=== PATIENT | female | born 1965 | race Caucasian/White ===

== ENCOUNTER → 2019-04-21 | Outpatient (CLI) | payer OTHER ==
--- NOTE | 2019-04-21 16:25 | US ---
EXAMINATION TYPE: US pelvic complete DATE OF EXAM: 04/21/2019 COMPARISON: NONE CLINICAL HISTORY: N95.0 post menopausal bleeding. Pt states episode of moderate vaginal bleeding x 1 day, denies pain, pt not on HRT's TECHNIQUE: Transabdominal (TA). Transabdominal sonographic images of the pelvis were acquired. Date of LMP: age 48 EXAM MEASUREMENTS: Uterus: 13.1 x 5.2 x 6.2 cm Endometrial Stripe: 0.6 cm Right Ovary: 2.0 x 1.2 x 2.1 cm Left Ovary: 2.0 x 1.3 x 1.6 cm 1. Uterus: Anteverted Heterogeneous, enlarged, 3 calcified masses within fundus 1)= 2.6 x 2.0 x 2. 1 cm 2)= 2.1 x 1.8 x 1.9 cm 3)= 1.4 x 1.4 x 1.4 cm 2. Endometrium: Appeared wnl 3. Right Ovary: wnl 4. Left Ovary: wnl 5. Bilateral Adnexa: wnl 6. Posterior cul-de-sac: wnl IMPRESSION: There are small calcified fibroids scattered throughout the uterus. Endometrium not well visualized presumed not thickened. Suboptimal study without transvaginal investigation.
== END | disposition home or self-care (01) ==
LOC: RADUSWWP 16:01
PROVIDERS: ATTEND Obstetrics & Gynecology
DX: D25.9 Leiomyoma of uterus, unspecified (principal)
CPT/HCPCS: 76856

== ENCOUNTER → 2019-06-28 | Outpatient (CLI) | payer OTHER ==
[2019-06-28 15:02] VITALS: BP 135/81; PULSE 92; RESP 16; TEMP 98.7; BMI 29.0
--- NOTE | 2019-06-28 16:25 | P.BASOAP ---
Subjective Progress Note Date: 06/28/19 Principal diagnosis: Obesity 53-year-old female had a lap band switched to a sleeve gastrectomy around 2009. Has done fairly well. Weight is been in the 159 range for a while. Lately he has had some upper abdominal discomfort along with acid reflux and dysphagia. Occasional episodes of vomiting as well. Lately has taken some Tagamet with some relief. Symptoms for the last few months. She has not followed up here in quite some time. Denies melena or rectal bleeding. Objective - Vital Signs Vital signs: Vital Signs Temp 98.7 F 06/28/19 14:58 Pulse 92 06/28/19 14:58 Resp 16 06/28/19 14:58 BP 135/81 06/28/19 14:58 Pulse Ox Intake & Output 06/27/19 06/28/19 06/28/19 18:59 06:59 18:59 Weight 72.121 kg - Exam Physical exam: General: Well-developed, well-nourished HEENT: Normocephalic, sclerae nonicteric Abdomen: Nontender, nondistended Extremities: No edema Neuro: Alert and oriented Assessment/Plan (1) GERD (gastroesophageal reflux disease) Narrative/Plan: Check annual labs at this time. Begin antiacid therapy. We'll schedule for EGD with possible biopsy and dilation. Plan: Date: 06/28/19 Initial Weight: 96.162 kg Initial BMI: 38.7 Current Weight: 72.121 kg Current BMI: 29.0 Type of Surgery: Total Volume in Band: Previous Volume: Volume Removed: Volume Added: Band Size:
[2019-06-28 16:55] LABS: HCT 34.8 % (34.0-46.0); HGB 10.9 gm/dL (11.4-16.0); Hypochromasia Slight; MCH 26.7 pg (25.0-35.0); MCHC 31.2 g/dL (31.0-37.0); MCV 85.6 fL (80.0-100.0); Mean Platelet Volume 6.7; Platelet Count 425 k/uL (150-450); RBC 4.07 m/uL (3.80-5.40); RDW 13.7 % (11.5-15.5); WBC 10.1 k/uL (3.8-10.6)
[2019-06-29 00:12] LABS: Folate, Serum 7.6 ng/mL
[2019-06-29 00:45] LABS: African American GFR (CKD) 96.2 (60.0-200.0); Albumin 4.5 g/dL (3.80-4.90); Albumin/Globulin Ratio 2.37 (1.60-3.17); Anion Gap 8.1 mmol/L (4.00-12.00); BUN/Creat Ratio 16.25 Ratio (12.00-20.00); Calcium 9.8 mg/dL (8.7-10.3); Carbon Dioxide 26.9 mmol/L (21.6-31.8); Globulin 1.9 g/dL (1.6-3.3); Potassium 4.5 mmol/L (3.5-5.5); Total Bilirubin 0.3 mg/dL (0.2-1.2); Total Protein 6.4 g/dL (6.2-8.2)
== END ==
LOC: BARWHC3 14:43
PROVIDERS: ATTEND Surgery
DX: K21.9 Gastro-esophageal reflux disease without esophagitis (principal); E66.01 Morbid (severe) obesity due to excess calories; K90.89 Other intestinal malabsorption; E55.9 Vitamin D deficiency, unspecified; Z98.84 Bariatric surgery status; Z79.899 Other long term (current) drug therapy; Z68.29 Body mass index [BMI] 29.0-29.9, adult
CPT/HCPCS: 36415; 80053; 82306; 82607; 82746; 83540; 84425; 85027; 99211

== ENCOUNTER 2019-08-05 07:29 | Day surgery (SDC) | payer OTHER ==
[2019-08-02 11:30] VITALS: BMI 29.2
[~2019-08-05 07:29] MED LIST: LACTATED RINGERS 1,000 ML IV SCH; LIDOCAINE 1% 20 ML VIAL (10MG/ML) FOR IV START INTRADERMA PRN
[2019-08-05 07:58] VITALS: TEMP 98.2
[2019-08-05] MEDS ORDERED: LIDOCAINE 1% INJ 10MG/ML (20 ML MDV) ONE (08:06)
[2019-08-05] MEDS ORDERED: PROPOFOL 10 MG/ML 20 ML VIAL IV ONE (08:06)
--- NOTE | 2019-08-05 08:15 | P.GSHP ---
History of Present Illness H&P Date: 08/05/19 Chief Complaint: GERD 53-year-old female known drop his. Patient with history of lap band in the past. She had a conversion to a sleeve gastrectomy. Here today for upper endoscopy given worsening symptoms of GERD. Mild dysphagia at times. Recently switched to omeprazole with better symptom control. Past Medical History Past Medical History: GERD/Reflux Additional Past Medical History / Comment(s): hiatal hernia, History of Any Multi-Drug Resistant Organisms: None Reported Past Surgical History: Bariatric Surgery, Section, Joint Replacement, Orthopedic Surgery, Tubal Ligation Additional Past Surgical History / Comment(s): lap band /later removed, gastric sleeve, rt knee replacement, left knee arthroscopy x 2, rt shoulder arthroscopy, left elbow surgery for bone chip, Past Anesthesia/Blood Transfusion Reactions: No Reported Reaction Additional Past Anesthesia/Blood Transfusion Reaction / Comment(s): No blood transfusion to date Smoking Status: Former smoker - Past Family History Father Family Medical History: Cancer, Pulmonary Embolus Additional Family Medical History / Comment(s): throat cancer Mother Family Medical History: Dementia Additional Family Medical History / Comment(s): 2019: patient's mother is 81 years old. Medications and Allergies Home Medications Medication Instructions Recorded Confirmed Type ARIPiprazole [Abilify] 5 mg PO DAILY 04/06/14 08/05/19 History Cholecalciferol (Vitamin D3) 125 mcg PO DAILY 08/02/19 08/05/19 History [Vitamin D3] Sertraline [Zoloft] 100 mg PO DAILY 08/02/19 08/05/19 History Allergies Allergy/AdvReac Type Severity Reaction Status Date / Time No Known Allergies Allergy Verified 08/05/19 08:02 Surgical - Exam Vital Signs Temp Pulse Resp BP Pulse Ox 98.2 F 72 16 121/80 97 08/05/19 07:56 08/05/19 07:56 08/05/19 07:56 08/05/19 07:56 08/05/19 07:56 Physical exam: General: Well-developed, well-nourished HEENT: Normocephalic, sclerae nonicteric Abdomen: Nontender, nondistended Extremities: No edema Neuro: Alert and oriented Assessment and Plan (1) GERD (gastroesophageal reflux disease) Narrative/Plan: Will proceed with upper endoscopy at this time Current Visit: No Status: Acute Code(s): K21.9 - GASTRO-ESOPHAGEAL REFLUX DISEASE WITHOUT ESOPHAGITIS SNOMED Code(s): 813779819
--- NOTE | 2019-08-05 08:24 | P.PCN ---
Date of Procedure: 08/05/19 Procedure(s) Performed: Preoperative Dx: GERD, post sleeve Postoperative Dx: Mild gastritis, distal esophagitis Procedure: EGD with Bx Anesthesia: Sedation Endoscopist: Dr. Payne Specimens: Antrum, esophagitis Endoscopic Procedure: The patient was on the endoscopy table in the left decubitus position. The Olympus gastroscope was inserted into the oropharynx and passed under direct visualization to the region of the third portion of the duodenum. From that point the scope was slowly withdrawn inspecting all surfaces carefully. There were no neoplastic inflammatory or polypoid lesions throughout the duodenum. The pylorus was widely patent. The stomach was carefully inspected. There was evidence of previous sleeve gastrectomy. Very subtle narrowing during the middle aspect of the sleeve was noted without any obstruction to the passage of the scope noted. The proximal stomach appeared normal. There was no definite hiatal hernia although retroflexion could not take place. At the distal esophagus multiple short linear erosions were identified these were non-circumferential and less than 1 cm in length. A biopsy one of these took place. The remainder the esophagus appeared normal. The patient was then taken to the recovery room in stable condition per anesthesia guidelines. Recommendations: Await biopsy results. Continue antiacid therapy. Add Carafate. Follow-up bariatric center.
[2019-08-05 08:40] VITALS: BP 118/80; PULSE 74; RESP 20
== END 2019-08-05 09:08 | disposition home or self-care (01) ==
LOC: ORWHC2ENDO 07:29
PROVIDERS: ATTEND Surgery
DX: K21.0 Gastro-esophageal reflux disease with esophagitis (principal); K29.50 Unspecified chronic gastritis without bleeding; K31.89 Other diseases of stomach and duodenum; K22.10 Ulcer of esophagus without bleeding; Z98.84 Bariatric surgery status; G43.909 Migraine, unspecified, not intractable, without status migrainosus; G47.33 Obstructive sleep apnea (adult) (pediatric); E11.9 Type 2 diabetes mellitus without complications; M79.7 Fibromyalgia; K76.0 Fatty (change of) liver, not elsewhere classified; F40.240 Claustrophobia; I44.7 Left bundle-branch block, unspecified; I10 Essential (primary) hypertension; Z87.19 Personal history of other diseases of the digestive system; Z98.890 Other specified postprocedural states; Z96.651 Presence of right artificial knee joint; Z98.51 Tubal ligation status; Z87.891 Personal history of nicotine dependence; Z79.899 Other long term (current) drug therapy; Z91.041 Radiographic dye allergy status; Z88.6 Allergy status to analgesic agent; Z91.018 Allergy to other foods; Z88.8 Allergy status to other drugs, medicaments and biological substances; Z88.2 Allergy status to sulfonamides; Z86.73 Personal history of transient ischemic attack (TIA), and cerebral infarction without residual deficits; Z79.84 Long term (current) use of oral hypoglycemic drugs; Z79.891 Long term (current) use of opiate analgesic; Z90.710 Acquired absence of both cervix and uterus; Z87.898 Personal history of other specified conditions; Z80.0 Family history of malignant neoplasm of digestive organs; Z82.49 Family history of ischemic heart disease and other diseases of the circulatory system; Z81.8 Family history of other mental and behavioral disorders
CPT/HCPCS: 88305; 43239; J2001; J2704

== ENCOUNTER → 2019-11-29 | Outpatient (CLI) | payer OTHER ==
--- NOTE | 2019-11-29 14:29 | XR ---
EXAMINATION TYPE: XR lumbosacral spine min 4V DATE OF EXAM: 11/29/2019 CLINICAL HISTORY: pain COMPARISON: NONE TECHNIQUE: Frontal, lateral, and oblique images of the lumbar spine are obtained. FINDINGS: There are 5 lumbar type vertebral bodies identified. The lumbar spine shows satisfactory alignment without evidence of acute fracture or dislocation. Vertebral body heights are within normal limits. Moderate degenerative disc space narrowing at L4-5 and L5-S1. Grade 1 retrolisthesis of L3 a nd L4 of 5.9 mm. Scattered ventral spondylosis. The overlying soft tissue appears unremarkable. IMPRESSION: No acute fracture or dislocation is seen in the lumbar spine. ICD 10 NO FRACTURE, INITIAL EVALUATION
== END | disposition home or self-care (01) ==
LOC: RADXRYALE 14:03
PROVIDERS: ATTEND Physician Assistant Medical
DX: M54.41 Lumbago with sciatica, right side (principal)
CPT/HCPCS: 72110

== ENCOUNTER → 2020-05-31 | Outpatient (CLI) | payer OTHER ==
--- NOTE | 2020-05-31 10:46 | US ---
EXAMINATION TYPE: US pelvic complete DATE OF EXAM: 05/31/2020 COMPARISON: Pelvic ultrasound April 21, 2019. CLINICAL HISTORY: D25.9 KNOWN UTERINE. Follow up fibroids. Patient states she does not want the dave svaginal exam. TECHNIQUE: Transabdominal (TA). Transabdominal sonographic images of the pelvis were acquired. 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 Uterus: Anteverted Enlarged. Heterogenous. Focal lesions with calcifications. 1- Right malika l = 2.1 x 2.2 x 1.7 cm. 2- Mid anterior = 2.1 x 2.2 x 1.7 cm. 3- anterior left = 1.9 x 2.0 x 1.2 c m. 2. Endometrium: wnl 3. Right Ovary: wnl 4. Left Ovary: Obscured by overlying bowel gas 5. Bilateral Adnexa: wnl 6. Posterior cul-de-sac: no free fluid Persistent heterogeneous anteverted enlarged lobulated fibroid uterus some fibroids are calcified. Fe w are noted as detailed above. Endometrium not well seen, not suspiciously thickened. No free fluid. Right ovary small in size system with patient's postmenopausal age. Left ovary not clearly identified . IMPRESSION: Prominent lobulated fibroid uterus redemonstrated. No significant interval change.
== END | disposition home or self-care (01) ==
LOC: RADUSWWP 10:04
PROVIDERS: ATTEND Obstetrics & Gynecology
DX: D25.9 Leiomyoma of uterus, unspecified (principal)
CPT/HCPCS: 76856

== ENCOUNTER → 2020-10-05 | Outpatient (CLI) | payer OTHER ==
--- NOTE | 2020-10-05 17:34 | BD ---
EXAMINATION TYPE: Axial Bone Density DATE OF EXAM: 10/05/2020 COMPARISON: NONE CLINICAL HISTORY: 54 YR OLD FEMALE....ICD-10 CODE: N95.1 POST MENOPAUSAL Height: 61.4 Weight: 163 FRAX RISK QUESTIONS: Current Tobacco Use: YES RISK FACTORS HISTORY OF: Family History of Osteoporosis: YES POSSIBLY MOTHER, NO HIP FX Diet low in dairy products/other sources of calcium: YES Postmenopausal woman: YES, AT AGE 48 YRS OLD Hyperparathyroidism: NO Adrenal Insufficiency: NO MEDICATIONS: Additional Medications: ZOLOFT ANC ABILIFY, VIT D Additional History: NOTHING TO NOTE HERE EXAM MEASUREMENTS: Bone mineral densitometry was performed using the [employer] System. Bone mineral density as measured about the Lumbar spine is: ----- L1-L4(G/cm2): 1.321 T Score Values are as follows: ----- L1: 1.1 ----- L2: 1.8 ----- L3: 1.2 ----- L4: 0.6 ----- L1-L4: 1.2 Bone mineral density FIRST BONE DENSITY SCAN.......BASELINE STUDY Bone mineral density about the R hip (g/cm2): 0.909 Bone mineral density about the L hip (g/cm2): 0.895 T Score values are as follows: -----R Neck: -1.2 -----L Neck: -1.3 -----R Total: -0.8 -----L Total: -0.9 Bone mineral density BASELINE STUDY FRAX%s: THERE IS A 6.6% CHANCE FOR A MAJOR OSTEOPOROTIC FX AND A 0.8% FOR HIP.......PROBABILITY FOR FX IN 10 YRS TIME IMPRESSION: Osteopenia (T Score between -2.5 and -1). There is slightly increased risk of fracture and the patient may be considered for treatment. Re-Screen 2-5 years. NOTE: T-SCORE=SD OF THE YOUNG ADULT MEAN.
--- NOTE | 2020-10-08 11:51 | MM ---
Reason for exam: screening (asymptomatic). Last mammogram was performed 6 years and 10 months ago. History: Patient is postmenopausal. Physical Findings: A clinical breast exam by your physician is recommended on an annual basis and results should be correlated with mammographic findings. MG Screening Mammo w CAD Bilateral CC and MLO view(s) were taken. Prior study comparison: December 06, 2013, bilateral MG screening mammo w CAD. The breast tissue is heterogeneously dense. This may lower the sensitivity of mammography. There are benign appearing round calcifications bilaterally. There is no discrete abnormality. ASSESSMENT: Benign, BI-RAD 2 RECOMMENDATION: Routine screening mammogram of both breasts in 1 year.
== END | disposition home or self-care (01) ==
LOC: RADMAMWWP 08:03
PROVIDERS: ATTEND Obstetrics & Gynecology
DX: Z12.31 Encounter for screening mammogram for malignant neoplasm of breast (principal); M85.89 Other specified disorders of bone density and structure, multiple sites; Z78.0 Asymptomatic menopausal state
CPT/HCPCS: 77067; 77080

== ENCOUNTER → 2020-11-21 | Outpatient (CLI) | payer OTHER ==
[2020-11-21 15:09] LABS: Anisocytosis Slight; HCT 40.5 % (34.0-46.0); HGB 12.8 gm/dL (11.4-16.0); MCH 26.7 pg (25.0-35.0); MCHC 31.7 g/dL (31.0-37.0); MCV 84.4 fL (80.0-100.0); Mean Platelet Volume 6.7; Platelet Count 300 k/uL (150-450); RBC 4.79 m/uL (3.80-5.40); WBC 8.7 k/uL (3.8-10.6)
[2020-11-21 15:10] LABS: Appearance,Urine Clear (Clear); Bilirubin,Urine Negative (Negative); Blood,Urine Trace (Negative); Color,Urine Yellow; Glucose,Urine (UA) Negative (Negative); Ketones,Urine Negative (Negative); Leukocyte Esterase,Urine Negative (Negative); Mucus,Urine Rare /hpf; Nitrite,Urine Negative (Negative); PH, Urine 5.5 (5.0-8.0); Protein,Urine Negative (Negative); RBC,Urine <1 /hpf (0-5); Specific Gravity,Urine 1.011 (1.001-1.035); Squamous Epithelial Cell,Urine <1 /hpf (0-4); Urobilinogen,Urine <2.0 mg/dL (<2.0); WBC,Urine <1 /hpf (0-5)
[2020-11-21 15:23] LABS: Partial Thromboplastin Time 21.8 sec (22.0-30.0); Prothrombin Time 10.5 sec (9.0-12.0)
[2020-11-21 15:41] LABS: ALT 19 U/L (4-34); AST 31 U/L (14-36); African American GFR (CKD) >90 (>60 ml/min/1.73 sqM); Albumin 4.3 g/dL (3.5-5.0); Alkaline Phosphatase 85 U/L (38-126); Anion Gap 8 mmol/L; Blood Urea Nitrogen 11 mg/dL (7-17); Calcium 9.7 mg/dL (8.4-10.2); Carbon Dioxide 26 mmol/L (22-30); Chloride 107 mmol/L (98-107); Glucose 88 mg/dL (74-99); Non-African American GFR(CKD) >90 (>60 ml/min/1.73 sqM); Potassium 4.3 mmol/L (3.5-5.1); Sodium 141 mmol/L (137-145); Total Bilirubin 0.3 mg/dL (0.2-1.3); Total Protein 6.7 g/dL (6.3-8.2)
== END | disposition home or self-care (01) ==
LOC: LABPAT 13:38
PROVIDERS: ATTEND Orthopaedic Surgery
DX: Z01.812 Encounter for preprocedural laboratory examination (principal); M17.12 Unilateral primary osteoarthritis, left knee
CPT/HCPCS: 36415; 80053; 81001; 85027; 85610; 85730; 87070

== ENCOUNTER 2020-11-26 10:53 | Day surgery (SDC) | payer OTHER ==
[2020-11-22 11:19] VITALS: BMI 29.2
[~2020-11-26 10:53] MED LIST changes: +ACETAMINOPHEN TAB 500 MG TAB PO PRN; -LACTATED RINGERS 1,000 ML IV SCH; +LIDOCAINE 1% (10MG/ML) FOR IV START INTRADERMA PRN; -LIDOCAINE 1% 20 ML VIAL (10MG/ML) FOR IV START INTRADERMA PRN; +MELOXICAM 7.5 MG TAB PO PRN; +MIDAZOLAM 2 MG/2 ML VIAL IV PRN; +ONDANSETRON 4 MG/2 ML VIAL IVP PRN; +ROPIVACAINE/EPI/CLONIDINE/KET 50 ML SYRINGE MISCELLANE PRN; +TRANEXAMIC ACID 1,000 MG in SODIUM CHLORIDE 0.9% 100 ML IVPB PRN
[2020-11-26] MEDS ORDERED: LIDOCAINE 1% (10MG/ML) FOR IV START INTRADERMA ONE (11:30)
[2020-11-26] MEDS: LACTATED RINGERS 1,000 ML IV SCH ×3 (11:30→17:56)
[2020-11-26] MEDS: DEXAMETHASONE SOD PHOSPHATE 4 MG/ML 1 ML VIAL IV ONE ×2 (11:54→17:56)
[2020-11-26] MEDS ORDERED: TRANEXAMIC ACID 1,000 MG/10 ML VIAL ONE (12:31)
[2020-11-26] MEDS ORDERED: SUCCINYLCHOLINE CHLORIDE 100 MG/5 ML SYR IV ONE (12:31)
[2020-11-26] MEDS ORDERED: PROPOFOL 10 MG/ML 20 ML VIAL IV ONE (12:31)
[2020-11-26] MEDS ORDERED: MIDAZOLAM 2 MG/2 ML VIAL ONE (12:31)
[2020-11-26] MEDS ORDERED: fentaNYL (PF) 50 MCG/ML 2 ML AMP ONE (12:31)
[2020-11-26] MEDS ORDERED: SODIUM CHLORIDE 0.9% 100 ML BAG ONE (12:31)
[2020-11-26] MEDS ORDERED: ROPIVACAINE 5 MG/ML 30 ML VIAL ONE (12:31)
[2020-11-26] MEDS ORDERED: LIDOCAINE 1% INJ 10MG/ML (20 ML MDV) ONE (12:31)
[2020-11-26] MEDS ORDERED: HYDROmorphone (PF) 1 MG/ML ONE (12:31)
[2020-11-26] MEDS ORDERED: ceFAZolin 3,000 MG in SODIUM CHLORIDE 0.9% IRRIGATIO 3,000 ML IRRIGATION ONE (12:35)
[2020-11-26] MEDS ORDERED: ROPIVACAINE 0.2%-NS ON-Q PUMP 1,090 MG, EMPTY PAIN BALL 1 EACH MISCELLANE PRN (13:30)
--- NOTE | 2020-11-26 13:38 | P.ANPRN ---
Procedure Note - Anesthesia - Nerve Block Performed Left Adductor Canal Infusion Time Out Performed: Yes (1151) Date of Procedure: 11/26/20 Procedure Start Time: 11:51 Procedure Stop Time: 11:59 Location of Patient: PreOp Indication: Acute Post-Operative Pain, Dx/Pain Location (Left Knee), Requested by Surgeon Specifically requested for management of pain by DrMaegan: Evelio Fowler Sedation Type: Sedate with meaningful contact maintained Preparation: Sterile Prep, Sterile Dressing Position: Supine Catheter: Indwelling Needle Types: On-Q Needle Gauge: 18 Ultrasound used to visualize needle placement: Yes Ultrasound used to observe medication spread: Yes Injectate: 0.5% Ropivacaine (see comment for volume) (15 cc) Blood Aspirated: No Pain Paresthesia on Injection Noted: No Resistance on Injection: Normal Events: Uneventful and Well Tolerated iPack Time Out Performed: Yes Date of Procedure: 11/26/20 Procedure Start Time: 12:00 Procedure Stop Time: 12:05 Location of Patient: PreOp Indication: Dx/Pain Location (Left knee), Requested by Surgeon Specifically requested for management of pain by DrMaegan: Evelio Fowler Sedation Type: Sedate with meaningful contact maintained Preparation: Sterile Prep Position: Right Lateral Catheter: None Needle Types: Pajunk Needle Gauge: 21 Ultrasound used to visualize needle placement: Yes Ultrasound used to observe medication spread: Yes Injectate: 0.5% Ropivacaine (see comment for volume) (15 cc) Blood Aspirated: No Pain Paresthesia on Injection Noted: No Resistance on Injection: Normal Image Stored and Saved: Yes
[2020-11-26] MEDS ORDERED: LACTATED RINGERS 1,000 ML IV ONE ×2 (14:13→16:22)
--- NOTE | 2020-11-26 14:13 | P.OP ---
Date of Procedure: 11/26/20 Procedure(s) Performed: PREOPERATIVE DIAGNOSIS: Left knee severe osteoarthritis with genu varum POSTOPERATIVE DIAGNOSIS: Left knee severe osteoarthritis with genu varum OPERATION: Left knee cemented total replacement arthroplasty. ANESTHESIA: Spinal ESTIMATED BLOOD LOSS: 100 ml. LINE LEADER: Yumiko Ashley NP (assistance with: patient positioning, retraction, exposure, hemostasis, leg positioning, implantation, irrigation, closure, dressing) COMPLICATIONS: None apparent. COMPONENTS IMPLANTED: Persona system from [employer] INDICATIONS: Carrie is a 55 year old female with a history of left knee osteoarthritis. Conservative treatment has been tried and has been unsuccessful in controlling symptoms adequately. The operation of knee replacement has been discussed at length in the office, as well as potential risks and complications. These are inclusive of, but not limited to: bleeding, infection, scarring, discomfort, blood vessel and nerve damage, need for further surgery, failure to relieve symptoms, persistence, recurrence, or worsening of problems, loosening, dislocation, wear, blood clot, pulmonary embolism, , gait dysfunction, stiffness, and other risks as discussed in the office. The patient elects to proceed and the consent form has been signed. PROCEDURE: The patient was taken to the operating room and positioned on the operating room table in the supine position. Anesthesia was initiated. Care was taken to make sure that all pressure points were adequately padded. The operative lower extremity was prepped and draped in the usual aseptic fashion using ChloraPrep. Ioban drape was used for the case and the patient received intravenous antibiotics within one hour of the incision. A pneumotourniquet and leg mao were used for the case. The limb was exsanguinated with an Esmarch bandage and the tourniquet was inflated to 300 mmHg. Time-out was called confirming the patient's identity, side, procedure and administration of antibiotics and tranexamic acid, 1 g IV. The incision was then created midline directly over the knee, carried down through skin and into the subcutaneous tissues and down to fascia. Full thickness subcutaneous medial flap was developed. Medial parapatellar arthrotomy was performed and the interior of the knee was inspected. There was end-stage osteoarthritis of the knee with a mild to moderate genu varum type deformity. The fat pad was excised and proximal medial release on the tibia was completed using meticulous dissection and a curved osteotome. The anterior cruciate ligament was taken down. Note was made of significant attrition of the anterior and significant degenerative appearance of the posterior cruciate ligaments. The exposure was excellent. The knee was flexed 90 degrees and the patella was everted. A spot was chosen on the femur approximately 1 cm anterior to the posterior cruciate ligament insertion and an intramedullary hole was created within the femur. The intramedullary guide was then set to 5 degrees of valgus. The distal cutting block was attached and pinned into position. An appropriate amount of distal femoral resection was set. The oscillating saw was then used to make the distal femoral cut. This cut was confirmed to be flat with the flat end of an osteotome. The retractors were placed around the tibia and the tibial surface was addressed. The angle and depth of resection was adjusted using an extramedullary cutting guide. The guide had a built-in 3 degree posterior slope cut. Once the cutting guide was adjusted appropriately and in line with the axis of the tibia and confirmed to be in good position in relation to the second metatarsal and transmalleolar axis, the tibial cut was then created with protection of the posterior neurovascular structures and the collateral ligaments. The tibial cut surface was removed and sized. Femoral sizing was then accomplished using anterior referencing. Care was taken to analyze the posterior condyles for signs of deficiency or severe wear, and adjustments to the guide were made, as appropriate. 3 degree external r otation pins were placed. The cutting jig for the femur was applied to these pins. The planned cuts were further analyzed prior to performing them with the oscillating saw. No femoral notching was produced. Bone fragments were removed and the cut surfaces were finished, as necessary, with a reciprocating saw. Spacer block technique was then used to confirm that the flexion and extension gaps were equal. Soft tissue releases and adjustment of the tibial and/or femoral cuts were made, as necessary, until the gaps were equal. This included release of the posterior cruciate ligament, which was tight in this patient. The femur was then further finished for a posterior cruciate ligament substituting component.
[2020-11-26] MEDS: HYDROmorphone 0.5 MG/0.5 ML SYRINGE IVP PRN ×2 (15:06→16:30)
--- NOTE | 2020-11-26 15:19 | XR ---
EXAMINATION TYPE: XR knee limited LT DATE OF EXAM: 11/26/2020 CLINICAL HISTORY: Left knee pain and arthritis status post total knee replacement. TECHNIQUE: Portable AP and crosstable lateral views of the left knee are obtained immediately postop eratively. COMPARISON: None FINDINGS: Metallic hardware from total left knee arthroplasty is seen and appears satisfactory in al ignment and position. There is evidence of recent surgery with diffuse subcutaneous gas and joint ef fusion noted. IMPRESSION: METALLIC HARDWARE FROM TOTAL left KNEE ARTHROPLASTY IS SATISFACTORY IN ALIGNMENT.
[2020-11-26] MEDS ORDERED: HYDROmorphone 0.5 MG/0.5 ML SYRINGE IVP PRN (17:26)
[2020-11-26] MEDS ORDERED: ONDANSETRON 4 MG/2 ML VIAL IVP PRN (17:26)
[2020-11-26] MEDS ORDERED: NALOXONE 0.4 MG/ML 1 ML VIAL IV PRN (17:26)
[2020-11-26] MEDS ORDERED: TEMAZEPAM 15 MG CAP PO PRN (17:26)
[2020-11-26] MEDS ORDERED: HYDROmorphone 1 MG/ML 1 ML SYRINGE IVP PRN (17:26)
[2020-11-26] MEDS ORDERED: HYDROcodone/APAP 7.5-325MG 1 EACH TAB PO PRN (17:26)
[2020-11-26] MEDS ORDERED: MAGNESIUM HYDROXIDE 2,400 MG/10 ML CUP PO PRN (17:26)
[2020-11-26] MEDS ORDERED: bisacodyL 10 MG SUPP RECTAL PRN (17:26)
--- NOTE | 2020-11-26 19:28 | P.CON ---
Consult Note - . Consult date: 11/26/20 Assessment/Plan:: Reason for consult- management of chronic medical conditions Ms. Moore is a 55-year-old female with a past medical history of GERD, osteoarthritis coming in for left knee arthroplasty. Patient had the procedure done this afternoon by Dr. Fowler. She is lying comfortably in the bed appears to be no acute distress. Patient states that she has GERD and she takes sucralfate on a regular basis. Patient denies having any abdominal pain nausea vomiting or diarrhea. She is an active smoker. She denies having any fevers chills or rigors. No cough or difficulty in breathing. No lower extremity swelling. Review of Systems CONSTITUTIONAL: No fever, no malaise, no fatigue. HEENT: History of vocal cord paralysis status post cervical surgery CARDIOVASCULAR: No chest pain or palpitations PULMONARY: No shortness of breath, no cough, no hemoptysis. GASTROINTESTINAL: No abdominal pain nausea vomiting or diarrhea NEUROLOGICAL: No headaches, no weakness, no numbness. HEMATOLOGICAL: Denies any bleeding or petechiae. GENITOURINARY: Denies any burning micturition, frequency, or urgency. MUSCULOSKELETAL/RHEUMATOLOGICAL: Denies any joint pain, swelling, or any muscle pain. ENDOCRINE: Denies any polyuria or polydipsia. PSYC: No depression or anxiety All 13 review of systems negative except for the ones mentioned above Past Medical History Past Medical History: GERD/Reflux, Osteoarthritis (OA) Additional Past Medical History / Comment(s): hiatal hernia, History of Any Multi-Drug Resistant Organisms: None Reported Past Surgical History: Bariatric Surgery, Section, Hernia Repair, Joint Replacement, Orthopedic Surgery, Tubal Ligation Additional Past Surgical History / Comment(s): lap band /later removed, gastric sleeve, rt knee replacement, left knee arthroscopy x 2, rt shoulder arthroscopy, left elbow surgery for bone chip, HIATAL HERNIA REPAIR Past Anesthesia/Blood Transfusion Reactions: No Reported Reaction Additional Past Anesthesia/Blood Transfusion Reaction / Comment(s): No blood transfusion to date Past Psychological History: Depression Additional Psychological History / Comment(s): . Smoking Status: Former smoker Past Alcohol Use History: Occasional Additional Past Alcohol Use History / Comment(s): smokes half a pack Past Drug Use History: None Reported - Past Family History Father Family Medical History: Cancer, Pulmonary Embolus Additional Family Medical History / Comment(s): throat cancer Mother Family Medical History: Dementia Additional Family Medical History / Comment(s): 2019: patient's mother is 81 years old. Medications and Allergies Home Medications Medication Instructions Recorded Confirmed Type ARIPiprazole [Abilify] 5 mg PO DAILY 04/06/14 11/26/20 History Cholecalciferol (Vitamin D3) 125 mcg PO DAILY 08/02/19 11/26/20 History [Vitamin D3] Sertraline [Zoloft] 100 mg PO DAILY 08/02/19 11/26/20 History Sucralfate [Carafate] 1 gm PO ACHS #120 tab 08/05/19 11/26/20 Rx Aspirin 81 mg PO BID #60 tab 11/26/20 Rx Gabapentin [Neurontin] 300 mg PO HS #5 cap 11/26/20 Rx Hydrocodone/Acetaminophen [[place] 1 - 2 tab PO Q4-6H PRN #40 tab 11/26/20 Rx 7.5-325] Meloxicam [Mobic] 7.5 mg PO DAILY #60 tab 11/26/20 Rx Ondansetron Odt [Zofran Odt] 4 mg PO Q12HR PRN #10 tab 11/26/20 Rx Sennosides-Docusate Sodium 1 tab PO BID #30 tablet 11/26/20 Rx [Senokot-S] Allergies Allergy/AdvReac Type Severity Reaction Status Date / Time No Known Allergies Allergy Verified 11/26/20 11:18 Physical Exam Vitals: Vital Signs Temp Pulse Pulse Resp BP Pulse Ox 11/26/20 17:34 98.3 F 97 18 149/83 94 L 11/26/20 16:53 89 16 141/78 92 L 11/26/20 16:30 89 14 135/69 95 11/26/20 16:00 102 H 16 142/75 92 L 11/26/20 15:45 107 H 16 160/76 91 L 11/26/20 15:27 106 H 14 160/68 92 L 11/26/20 15:12 107 H 16 170/87 92 L 11/26/20 15:00 104 H 178/85 94 L 11/26/20 14:45 110 H 14 169/80 92 L 11/26/20 14:31 97.8 F 112 H 12 169/80 94 L 11/26/20 11:07 98.2 F 83 16 155/80 98 Intake and Output 11/26/20 11/26/20 11/26/20 06:59 14:59 22:59 Intake Total 1751 300 Output Total 100 Balance 1651 300 Intake: IV 1751 300 Output: Estimated Blood Loss 100 Other: Weight 72.9 kg 72.9 kg GENERAL: The patient is alert and oriented x3, not in any acute distress. HEENT: Pupils are round and equally reacting to light. EOMI. No scleral icterus. no conjunctival pallor. Normocephalic, atraumatic. CARDIOVASCULAR: S1 and S2 present. No murmurs, rubs, or gallops. PULMONARY: Chest is clear to auscultation, no wheezing or crackles. ABDOMEN: Soft, nontender, nondistended. Bowel sounds positive MUSCULOSKELETAL: No joint swelling or deformity. EXTREMITIES: No cyanosis, clubbing, or pedal edema. Left knee covered in bandage NEUROLOGICAL: Gross neurological examination did not reveal any focal deficits. Psychiatric: Appropriate mood and affect ASSESSMENT Status post left knee arthroplasty GERD Active smoker Multiple joint osteoarthritis PLAN: Patient is advised to do incentive spirometry. Continue with sucralfate for GERD, to avoid NSAIDs. Pain management and DVT prophylaxis as per primary team. We will follow the patient on as-needed basis. Thank you for the consultation.
[2020-11-26] MEDS: SUCRALFATE 1 GM TAB PO SCH (20:06)
[2020-11-26] MEDS: HYDROcodone/APAP 7.5-325MG 1 EACH TAB PO PRN (20:12)
[2020-11-26] MEDS: ASPIRIN 81 MG PO SCH (20:12)
[2020-11-26] MEDS ORDERED: SENNOSIDES-DOCUSATE SODIUM 1 EACH TAB PO SCH (21:00)
[2020-11-27 01:31] VITALS: TEMP 98.2
[2020-11-27] MEDS: HYDROcodone/APAP 7.5-325MG 1 EACH TAB PO PRN ×2 (01:56→08:05)
[2020-11-27] MEDS: LACTATED RINGERS 1,000 ML IV SCH ×2 (03:16→07:58)
[2020-11-27] MEDS: ASPIRIN 81 MG PO SCH (08:04)
[2020-11-27] MEDS: SUCRALFATE 1 GM TAB PO SCH (08:04)
[2020-11-27] MEDS ORDERED: SERTRALINE 100 MG TAB PO SCH (09:00)
[2020-11-27] MEDS ORDERED: ARIPiprazole 5 MG TAB PO SCH (09:00)
[2020-11-27] MEDS ORDERED: MELOXICAM 7.5 MG TAB PO SCH (09:00)
[2020-11-27] MEDS ORDERED: CHOLECALCIFEROL 25 MCG (1000 IU) TABLET PO SCH (09:00)
[2020-11-27 09:03] VITALS: BP 125/80; PULSE 76; RESP 16
--- NOTE | 2020-11-27 09:12 | P.DS ---
Providers Expected date of discharge: 11/27/20 Attending physician: Evelio Fowler Consults: 11/26/20 18:08 Consult Physician Routine Consulting Provider: Amari Dos Santos Consult Reason/Comments: MEDICAL MANAGEMENT Do you want consulting provider notified?: Yes Primary care physician: Andrew Jordan - Discharge Diagnosis(es) (1) Primary osteoarthritis of left knee Current Visit: Yes Status: Acute (2) Status post left knee replacement Current Visit: Yes Status: Acute Hospital Course: This is a pleasant 55-year-old female last seen in our office with complaints of left knee pain. Patient has known history of degenerative arthritis of the left knee and presented to discuss options. After discussion and consideration, the patient elected to proceed with a left total knee arthroplasty. Patient was seen preoperatively, and medically cleared for surgery by her primary care physician. Patient was admitted to [facility] underwent left total knee arthroplasty on 11/26/[address] Fowler. The procedure was performed without complications or sequelae. The patient is seen and evaluated at bedside today. Pain is well-controlled. Patient has no new complaints today and denies any fevers, chills, nausea, vomiting, or shortness of breath. Vital signs are stable. Dressing is clean dry and intact. Incision looks fine with no erythema or active drainage. Calf is soft and nontender. Patient has full foot and ankle motion without difficulty. Patient's left lower extremity is neurovascularly intact. The patient is orthopedically stable for discharge today. Patient Condition at Discharge: Stable Plan - Discharge Summary Discharge Rx Participant: Yes New Discharge Prescriptions: New Aspirin 81 mg PO BID #60 tab Sennosides-Docusate Sodium [Senokot-S] 1 tab PO BID #30 tablet Meloxicam [Mobic] 7.5 mg PO DAILY #60 tab Gabapentin [Neurontin] 300 mg PO HS #5 cap Ondansetron Odt [Zofran Odt] 4 mg PO Q12HR PRN #10 tab PRN Reason: Nausea Hydrocodone/Acetaminophen [[place] 7.5-325] 1 - 2 tab PO Q4-6H PRN #40 tab PRN Reason: Pain No Action ARIPiprazole [Abilify] 5 mg PO DAILY Sertraline [Zoloft] 100 mg PO DAILY Cholecalciferol (Vitamin D3) [Vitamin D3] 125 mcg PO DAILY Sucralfate [Carafate] 1 gm PO ACHS #120 tab Discharge Medication List ARIPiprazole [Abilify] 5 mg PO DAILY 04/06/14 [History] Cholecalciferol (Vitamin D3) [Vitamin D3] 125 mcg PO DAILY 08/02/19 [History] Sertraline [Zoloft] 100 mg PO DAILY 08/02/19 [History] Sucralfate [Carafate] 1 gm PO ACHS #120 tab 08/05/19 [Rx] Aspirin 81 mg PO BID #60 tab 11/26/20 [Rx] Gabapentin [Neurontin] 300 mg PO HS #5 cap 11/26/20 [Rx] Hydrocodone/Acetaminophen [[place] 7.5-325] 1 - 2 tab PO Q4-6H PRN #40 tab 11/26/20 [Rx] Meloxicam [Mobic] 7.5 mg PO DAILY #60 tab 11/26/20 [Rx] Ondansetron Odt [Zofran Odt] 4 mg PO Q12HR PRN #10 tab 11/26/20 [Rx] Sennosides-Docusate Sodium [Senokot-S] 1 tab PO BID #30 tablet 11/26/20 [Rx] Follow up Appointment(s)/Referral(s): Evelio Fowler MD [STAFF PHYSICIAN] - 2 Weeks Activity/Diet/Wound Care/Special Instructions: Weightbearing as tolerated with walker Keep dressing in place for 10 days unless saturated Aspirin 81 mg twice a day May shower over dressing Follow up with or Muareen Urias PA-C in 2 weeks. Call [facility] with questions or concerns, Discharge Disposition: HOME WITH HOME HEALTH SERVICES
--- NOTE | 2020-11-27 10:18 | P.PN ---
Progress Note - Text Patient was seen at 6:36 AM in the morning. Postoperative day # 1 status post total knee arthroplasty, on adductor canal perineural catheter placed for postoperative analgesia. Ropivacaine 0.2% 8 mL per hour through ON-Q pump continuous infusion. Pain is well controlled. On visual analog scale 2/10 Patient is taking PRN oral pain medications. Catheter site: Looks Ok. There is no erythema or tenderness. Continue with the current pain management plan and will follow.
[2020-11-27 10:20] LABS: Basophils # (A) 0.03 X 10*3/uL (0.00-0.10); Basophils % (A) 0.3 %; Eosinophils # (A) 0.03 X 10*3/uL (0.04-0.35); Eosinophils % (A) 0.3 %; HCT 34.3 % (37.2-46.3); HGB 10.9 g/dL (12.0-15.0); Lymphocytes # (A) 2.18 X 10*3/uL (0.90-5.00); Lymphocytes % (A) 18.6 %; MCH 27.5 pg (27.0-32.0); MCHC 31.8 g/dL (32.0-37.0); MCV 86.6 fL (80.0-97.0); Mean Platelet Volume 9.7 fL (9.5-12.2); Monocytes # (A) 0.77 X 10*3/uL (0.20-1.00); Monocytes % (A) 6.6 %; Neutrophils # (A) 8.69 X 10*3/uL (1.80-7.70); Neutrophils % (A) 73.8 %; Platelet Count 254 X 10*3/uL (140-440); RBC 3.96 X 10*6/uL (4.10-5.20); RDW 17.3 % (11.5-14.5); WBC 11.75 X 10*3/uL (4.50-10.00)
[2020-11-27 11:02] LABS: African American GFR (CKD) 111.5 (60.0-200.0); Anion Gap 8.2 mmol/L (4.00-12.00); BUN/Creat Ratio 18.57 Ratio (12.00-20.00); Calcium 8.7 mg/dL (8.7-10.3); Carbon Dioxide 25.8 mmol/L (21.6-31.8); Non-African American GFR(CKD) 96.2 (60.0-200.0); Potassium 4.3 mmol/L (3.5-5.5)
== END 2020-11-27 11:13 | disposition home health service (06) ==
LOC: OR 10:53 → 4SSUR 17:21 → OR 11-27 11:13
PROVIDERS: ATTEND Orthopaedic Surgery
DX: M17.12 Unilateral primary osteoarthritis, left knee (principal); D64.9 Anemia, unspecified; F32.9 Major depressive disorder, single episode, unspecified; K21.9 Gastro-esophageal reflux disease without esophagitis; F17.210 Nicotine dependence, cigarettes, uncomplicated; Z97.3 Presence of spectacles and contact lenses; Z96.651 Presence of right artificial knee joint; Z98.890 Other specified postprocedural states; Z82.49 Family history of ischemic heart disease and other diseases of the circulatory system; Z83.3 Family history of diabetes mellitus; Z98.51 Tubal ligation status; Z80.0 Family history of malignant neoplasm of digestive organs; Z81.8 Family history of other mental and behavioral disorders; Z79.1 Long term (current) use of non-steroidal anti-inflammatories (NSAID); Z79.82 Long term (current) use of aspirin; Z79.899 Other long term (current) drug therapy
CPT/HCPCS: 97161; 64999; 64448; 76942; 80048; 85025; 88300; 73560; 27447; C1713; C1776; J2250; J1100; J0690 ×3; J2405; J2001; J3010; J1170 ×2; J2795 ×2; J0330; J2704

== ENCOUNTER → 2023-05-12 | Outpatient (CLI) | payer OTHER ==
[2023-05-12 11:03] VITALS: BP 123/79; PULSE 79; RESP 16; TEMP 98
--- NOTE | 2023-05-12 11:45 | P.HPOB ---
History of Present Illness H&P Date: 05/12/23 Chief Complaint: The patient is here for her routine gynecologic exam and ma mmogram. This is a 57-year-old with an LMP of 2013. The patient is here to establish with this office. She states it has been 4-5 years since her last pelvic exam. She is complaining of painful intercourse even with lubrication for the past 1 year. It is uncomfortable with all penetration and not just with deep penetration. It can get slightly better later in the act of intercourse. She is otherwise without gynecologic complaints and denies any postmenopausal bleeding. Review of Systems The patient has lost 15 pounds over the last year. The weight loss has been intentional. She denies respiratory, cardiac, or G.I. problems. Past Medical History Past Medical History: Diabetes Mellitus, GERD/Reflux Additional Past Medical History / Comment(s): hiatal hernia, osteopenia. 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 History of uterine fibroids. History of Any Multi-Drug Resistant Organisms: None Reported Past Surgical History: Bariatric Surgery, Section, Joint Replacement, Orthopedic Surgery, Tubal Ligation Additional Past Surgical History / Comment(s): lap band /later removed, gastric sleeve, bilateral knee replacement, left knee arthroscopy x 2, rt shoulder arthroscopy, left elbow surgery for bone chip, section 3. Past Anesthesia/Blood Transfusion Reactions: No Reported Reaction Additional Past Anesthesia/Blood Transfusion Reaction / Comment(s): No blood transfusion to date Past Psychological History: Anxiety, Depression (Under control with medications.) Additional Psychological History / Comment(s): . Smoking Status: Current every day smoker (About a half a pack of cigars per day.) Past Alcohol Use History: Occasional (2 drinks per week.) Additional Past Alcohol Use History / Comment(s): smokes half a pack Past Drug Use History: None Reported Additional History: She has been since 1988 and is sexually active. 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 - Past Family History Father Family Medical History: Cancer, Diabetes Mellitus, Myocardial Infarction ([place]), Pulmonary Embolus Additional Family Medical History / Comment(s): throat cancer. . Mother Family Medical History: Dementia Additional Family Medical History / Comment(s): . No family history of cancer of the breast, uterus, ovaries, or colon. Medications and Allergies Home Medications Medication Instructions Recorded Confirmed Type ARIPiprazole [Abilify] 5 mg PO DAILY 04/06/14 05/12/23 History Cholecalciferol (Vitamin D3) 125 mcg PO DAILY 08/02/19 05/12/23 History [Vitamin D3 (5000 Iu)] Sertraline [Zoloft] 100 mg PO DAILY 08/02/19 05/12/23 History metFORMIN HCL 500 mg PO DAILY 05/12/23 05/12/23 History Allergies Allergy/AdvReac Type Severity Reaction Status Date / Time No Known Allergies Allergy Verified 05/12/23 10:37 Exam Vital Signs Temp Pulse Resp BP Pulse Ox 05/12/23 10:41 98 F 79 16 123/79 99 Intake and Output 05/11/23 05/12/23 05/12/23 22:59 06:59 14:59 Other: Weight 72.575 kg Height 5 feet 2 inches, weight 160 pounds, BMI 29.3. This is a well-developed well-nourished white female who is alert and oriented times 3 in no acute distress. HEENT: Within normal limits. NECK: Supple without mass or thyromegaly. CHEST AND LUNGS: Clear to auscultation. HEART: Regular rate and rhythm. BREASTS: Are without mass or discharge. AXILLARY EXAM: Negative for adenopathy. BACK: Negative for CVA tenderness. ABDOMEN: Soft, nontender, without palpable masses. PELVIC EXAM: Normal external genitalia with mild atrophy. Cervix and vagina appear normal with mild atrophy. The vagina is very long and narrow. There is no unusual discharge. There is no evidence of prolapse. The uterus is midposition, nongravid size and nontender. There are no palpable adnexal masses or tenderness. RECTAL EXAM: Rectovaginal exam is negative for mass or tenderness and is negative for occult blood. EXTREMITIES: Nontender. Pelvic ultrasound was done on 05/31/2020 and this showed multiple small uterine fibroids with the largest measuring 2.2 cm. IMPRESSION: 1. 57-year-old menopausal female with normal gynecologic exam. 2. Dyspareunia probably secondary to genital atrophy with a small vaginal dimensions secondary to no vaginal births. 3. History of uterine fibroids which are asymptomatic. 4. History of osteopenia. PLAN: 1. Pap smear cotest was performed. 2. Self breast awareness was discussed with the patient. We have also discussed symptoms associated with inflammatory breast cancer. 3. Screening mammogram will be done today. 4. Osteoporosis prevention was discussed. I have stressed the importance of adequate calcium, vitamin D and regular exercise. Recommended amounts of calcium and vitamin D were also discussed. Her last bone density test was done on 10/05/2020. I recommended repeating this next year. 5. Trial of Premarin vaginal cream. She is to insert 1 g into the vagina 2 times weekly. A sample tube was given to the patient with instructions. The electronic prescription will be sent to [facility] in [place]. 6. She is scheduled for a colonoscopy in June 2023. She will arrange these things through her PCP. 7. She was advised to return in one year for her annual well woman exam and as needed.
--- NOTE | 2023-05-13 09:42 | MM ---
Reason for Exam: Screening (asymptomatic). Last mammogram was performed 2 year(s) and 7 month(s) ago. Patient History: Menarche at age 9. First Full-Term at age 24. Postmenopausal. Risk Values: Awa 5 year model risk: 1.7%. NCI Lifetime model risk: 9.1%. Prior Study Comparison: 10/07/2006 Bilateral Screening Mammogram, [facility]. 12/06/2013 Bilateral Screening Mammogram, [facility]. 10/05/2020 Bilateral Screening Mammogram, [facility]. Tissue Density: There are scattered fibroglandular densities. Findings: Analyzed By CAD. There is no suspicious group of microcalcifications or new suspicious mass. Overall Assessment: Negative, BI-RAD 1 Management: Screening Mammogram of both breasts in [address] [facility] will attempt to contact patient to return for supplemental views and ultrasound if indicated. Patient should continue monthly self-breast exams. A clinical breast exam by your physician is recommended on an annual basis. This exam should not preclude additional follow-up of suspicious palpable abnormalities. Note on Awa scores and lifetime risk: 1. A Awa score greater than 3% is considered moderate risk. If this is the case, consider specialist referral to assess eligibility for a risk reducing agent. 2. If overall lifetime risk for the development of breast cancer is 20% or higher, the patient may qualify for future screening with alternating mammogram and breast MRI. Electronically signed and approved by: Luca Mederos DO
== END ==
LOC: WWCWWP 10:27
PROVIDERS: ATTEND Obstetrics & Gynecology
DX: Z12.31 Encounter for screening mammogram for malignant neoplasm of breast (principal); N94.10 Unspecified dyspareunia; D25.9 Leiomyoma of uterus, unspecified; M85.80 Other specified disorders of bone density and structure, unspecified site; E11.9 Type 2 diabetes mellitus without complications; F32.A Depression, unspecified; F41.9 Anxiety disorder, unspecified; F17.210 Nicotine dependence, cigarettes, uncomplicated; K21.9 Gastro-esophageal reflux disease without esophagitis; Z79.84 Long term (current) use of oral hypoglycemic drugs; Z78.0 Asymptomatic menopausal state; Z86.018 Personal history of other benign neoplasm; Z96.653 Presence of artificial knee joint, bilateral
CPT/HCPCS: 77067

== ENCOUNTER 2023-07-07 08:38 | Day surgery (SDC) | payer OTHER ==
[2023-07-01 12:11] VITALS: BMI 29.2
[~2023-07-07 08:38] MED LIST changes: -ACETAMINOPHEN TAB 500 MG TAB PO PRN; +LACTATED RINGERS 1,000 ML IV SCH; -MELOXICAM 7.5 MG TAB PO PRN; -MIDAZOLAM 2 MG/2 ML VIAL IV PRN; -ROPIVACAINE/EPI/CLONIDINE/KET 50 ML SYRINGE MISCELLANE PRN; -TRANEXAMIC ACID 1,000 MG in SODIUM CHLORIDE 0.9% 100 ML IVPB PRN
[2023-07-07 09:32] LABS: Glucose,Whole Blood 104 mg/dL (70-110)
[2023-07-07] MEDS ORDERED: PROPOFOL 10 MG/ML 20 ML VIAL IV ONE (09:32)
[2023-07-07 09:33] VITALS: TEMP 97.5
--- NOTE | 2023-07-07 09:48 | P.GSHP ---
History of Present Illness H&P Date: 07/07/23 Chief Complaint: Colon cancer screening 57-year-old female here for colonoscopy. L she has not had a colonoscopy previously. No bowel complaints. No family history of colon cancer. Past Medical History Past Medical History: Diabetes Mellitus, GERD/Reflux, Osteoarthritis (OA) Additional Past Medical History / Comment(s): hiatal hernia, osteopenia. 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 History of uterine fibroids. History of Any Multi-Drug Resistant Organisms: None Reported Past Surgical History: Bariatric Surgery, Section, Joint Replacement, Orthopedic Surgery, Tubal Ligation Additional Past Surgical History / Comment(s): lap band /later removed, gastric sleeve, rt knee replacement, left knee arthroscopy x 2, rt shoulder arthroscopy, left elbow surgery for bone chip, LT TKA-2013 Past Anesthesia/Blood Transfusion Reactions: No Reported Reaction Additional Past Anesthesia/Blood Transfusion Reaction / Comment(s): No blood transfusion to date Smoking Status: Current every day smoker - Past Family History Father Family Medical History: Cancer, Pulmonary Embolus Additional Family Medical History / Comment(s): throat cancer Mother Family Medical History: Dementia Additional Family Medical History / Comment(s): . No family history of cancer of the breast, uterus, ovaries, or colon. Medications and Allergies Home Medications Medication Instructions Recorded Confirmed Type ARIPiprazole [Abilify] 5 mg PO DAILY 04/06/14 07/01/23 History Cholecalciferol (Vitamin D3) 125 mcg PO DAILY 08/02/19 07/01/23 History [Vitamin D3 (5000 Iu)] Sertraline [Zoloft] 100 mg PO DAILY 08/02/19 07/01/23 History metFORMIN HCL 500 mg PO DAILY 05/12/23 07/01/23 History Cyanocobalamin [Vitamin B-12] 500 mcg PO DAILY 07/01/23 07/01/23 History Omeprazole 20 mg PO DAILY 07/07/23 07/07/23 History Allergies Allergy/AdvReac Type Severity Reaction Status Date / Time No Known Allergies Allergy Verified 07/07/23 09:19 Surgical - Exam Vital Signs Temp Pulse Resp BP Pulse Ox 97.5 F L 78 18 144/85 97 07/07/23 09:22 07/07/23 09:22 07/07/23 09:22 07/07/23 09:22 07/07/23 09:22 Physical exam: General: Well-developed, well-nourished HEENT: Normocephalic, sclerae nonicteric Abdomen: Nontender, nondistended Extremities: No edema Neuro: Alert and oriented Assessment and Plan (1) Colon cancer screening Narrative/Plan: Will proceed with colonoscopy at this time. Current Visit: Yes Status: Acute Code(s): Z12.11 - ENCOUNTER FOR SCREENING FOR MALIGNANT NEOPLASM OF COLON SNOMED Code(s): 940636172
--- NOTE | 2023-07-07 09:50 | P.PCN ---
Date of Procedure: 07/07/23 Procedure(s) Performed: PREOPERATIVE DIAGNOSIS: Colon cancer screening POSTOPERATIVE DIAGNOSIS: Normal exam PROCEDURE: Colonoscopy ANESTHESIA: MAC SURGEON: Alireza Payne M.D. SPECIMENS: None ENDOSCOPIC PROCEDURE: The patient was placed on the endoscopy table in the left decubitus position. The Olympus colonoscope was inserted into the anus and passed under direct visualization to the base of the cecum. The appendiceal orifice was visualized. From that point the scope was slowly withdrawn inspecti ng all surfaces carefully. There were no neoplastic inflammatory or polypoid lesions throughout the cecum, ascending, transverse, descending, sigmoid and rectum. There was no visible diverticulosis noted. Digital rectal examination was normal. The patient was taken to the recovery room in stable condition per anesthesia guidelines. RECOMMENDATIONS: Resume diet. Repeat colonoscopy 10 years.
[2023-07-07 09:58] VITALS: RESP 16
[2023-07-07 10:07] LABS: Glucose,Whole Blood 131 mg/dL (70-110)
[2023-07-07 10:24] VITALS: BP 144/85; PULSE 75
== END 2023-07-07 10:35 | disposition home or self-care (01) ==
LOC: ORWHC2ENDO 08:38
PROVIDERS: ATTEND Surgery
DX: Z12.11 Encounter for screening for malignant neoplasm of colon (principal); E11.9 Type 2 diabetes mellitus without complications; K21.9 Gastro-esophageal reflux disease without esophagitis; K57.30 Diverticulosis of large intestine without perforation or abscess without bleeding; M19.90 Unspecified osteoarthritis, unspecified site; M85.80 Other specified disorders of bone density and structure, unspecified site; F17.200 Nicotine dependence, unspecified, uncomplicated; Z79.84 Long term (current) use of oral hypoglycemic drugs; Z79.899 Other long term (current) drug therapy
CPT/HCPCS: 45378; J2704

== ENCOUNTER → 2024-10-21 | Outpatient (CLI) | payer OTHER, BC ==
--- NOTE | 2024-10-21 11:25 | MM ---
Reason for Exam: Screening (asymptomatic). Last mammogram was performed 1 year(s) and 6 month(s) ago. Patient History: Menarche at age 9. First Full-Term at age 24. Postmenopausal. Risk Values: Awa 5 year model risk: 1.8%. NCI Lifetime model risk: 8.9%. Prior Study Comparison: 12/06/2013 Bilateral Screening Mammogram, [facility]. 10/05/2020 Bilateral Screening Mammogram, [facility]. 05/12/2023 Bilateral MG screening mammo w CAD, [facility]. Tissue Density: The breasts are heterogeneously dense, which may obscure small masses. Findings: Analyzed By CAD. Right breast: There is no suspicious group of microcalcifications or new suspicious mass. Left breast: There is no suspicious group of microcalcifications or new suspicious mass. Overall Assessment: Negative, BI-RAD 1 Management: Screening Mammogram of both breasts in [address] [facility] will attempt to contact patient to return for supplemental views and ultrasound if indicated. Patient should continue monthly self-breast exams. A clinical breast exam by your physician is recommended on an annual basis. This exam should not preclude additional follow-up of suspicious palpable abnormalities. Note on Awa scores and lifetime risk: 1. A Awa score greater than 3% is considered moderate risk. If this is the case, consider specialist referral to assess eligibility for a risk reducing agent. 2. If overall lifetime risk for the development of breast cancer is 20% or higher, the patient may qualify for future screening with alternating mammogram and breast MRI. [facility], , 10/21/2024 11:22 AM. Electronically signed and approved by: Luca Mederos DO
== END | disposition home or self-care (01) ==
LOC: RADMAMWWP 10:57
PROVIDERS: ATTEND Family Medicine
DX: Z12.31 Encounter for screening mammogram for malignant neoplasm of breast (principal); R92.333 Mammographic heterogeneous density, bilateral breasts; Z78.0 Asymptomatic menopausal state
CPT/HCPCS: 77067